=== PATIENT | female | born 1935 | race Caucasian/White ===

== ENCOUNTER 2017-07-22 20:51 | Emergency (ER) | payer OTHER, MEDICARE ==
[~2017-07-22] VITALS: Ht 167.6 cm; Wt 59.9 kg
[2017-07-22 21:13] VITALS: BP_SYST 120
[2017-07-22 23:09] VITALS: BP_SYST 117
== END 2017-07-22 23:09 | disposition home or self-care (01) ==
LOC: SED 20:51
DX: S61.411A Laceration without foreign body of right hand, initial encounter (principal); S00.83XA Contusion of other part of head, initial encounter; I10 Essential (primary) hypertension; Z85.3 Personal history of malignant neoplasm of breast; W19.XXXA Unspecified fall, initial encounter; Y93.89 Activity, other specified; Y92.89 Other specified places as the place of occurrence of the external cause; Y99.8 Other external cause status
CPT/HCPCS: 70486-TC; 99284

== ENCOUNTER 2018-04-02 05:50 | Emergency (ER) | payer OTHER, MEDICARE ==
[~2018-04-02] VITALS: Ht 170.2 cm; Wt 66.7 kg
[2018-04-02 06:00] VITALS: BP_SYST 151
--- NOTE | 2018-04-02 06:00 | NUR ---
Patient to ER bed 2 to gown for evaluation. Side rails up. Report given from NGUYEN Taylor.
--- NOTE | 2018-04-02 06:05 | NUR ---
ER at bedside examining patient.
--- NOTE | 2018-04-02 06:10 | NUR ---
Pt came in post fall 2 weeks ago. Pt states that she fell on her face and her knee about 2 weeks ago. Pt says that she has lower back pain that shes had history of that comes and goes. Pt says that it can happen due to stress. Denies n/v/d or fever. No other complaints/injuries noted. Will cont. to monitor.
[2018-04-02] MEDS ORDERED: KETOROLAC TROMETHAMINE 60 MG/2 ML VIAL IM ONE (06:30)
--- NOTE | 2018-04-02 06:40 | NUR ---
Pt medicated with Toradol IM per MD order. Tolerated well. Will cont. to monitor.
--- NOTE | 2018-04-02 08:52 | NUR ---
PT UP TO BATHROOM WITH MINIMAL ASSITANCE.
--- NOTE | 2018-04-02 09:18 | NUR ---
DC WITH [facility], RX GIVEN TEACHING DONE ON MEDS. PT LEFT WITH STABLE VS, AMB WITH SON ON PRVATE VECHICHLE.
[2018-04-02 12:49] VITALS: BP_SYST 136
== END 2018-04-02 09:18 | disposition home or self-care (01) ==
LOC: SED 05:50
DX: S33.5XXA Sprain of ligaments of lumbar spine, initial encounter (principal); I10 Essential (primary) hypertension; Z85.3 Personal history of malignant neoplasm of breast; W19.XXXA Unspecified fall, initial encounter; Y93.89 Activity, other specified; Y92.89 Other specified places as the place of occurrence of the external cause; Y99.8 Other external cause status
CPT/HCPCS: 71250; 74176; 96372; 99284; J1885

== ENCOUNTER 2021-12-20 12:03 | Emergency (ER) | payer OTHER, MEDICARE ==
[~2021-12-20] VITALS: Ht 170.2 cm; Wt 70.8 kg
[2021-12-20 12:09] VITALS: BP_SYST 166
--- NOTE | 2021-12-20 14:30 | NUR ---
SEEN AND EVALUATED BY DR MOTA IN TRIAGE ROOM.
[2021-12-20 15:18] LABS: ANION GAP 8 (5-15); CALCIUM 9.3 mg/dL (8.4-11.0); CHLORIDE 106 mmol/L (98-107); CREATININE 0.62 mg/dL (0.55-1.30); GLUCOSE 101 mg/dL (70-99); SODIUM SERUM 142 mmol/L (136-145); UREA NITROGEN, BLOOD 13 mg/dL (8-21)
[2021-12-20 15:23] LABS: ALANINE AMINOTRANSFERASE 18 U/L (12-78); ALBUMIN 3.8 g/dL (3.4-4.8); ASPARTATE AMINOTRANSFERASE 17 U/L (10-37); TOTAL BILIRUBIN 0.4 mg/dL (0.0-1.0)
[2021-12-20 15:27] LABS: BASOPHILS # (AUTO) 0.1 K/uL (0.0-0.2); EOSINOPHILS # (AUTO) 0.2 K/uL (0.0-0.4); EOSINOPHILS % (AUTO) 2.6 % (0.0-4.0); LYMPHOCYTES # (AUTO) 3.1 K/uL (1.0-5.5); LYMPHOCYTES % (AUTO) 35.7 % (20.5-51.5); MEAN CORPUSCULAR HEMOGLOBIN 32 pg (27-31); MEAN CORPUSCULAR HGB CONC 33 % (32-36); MEAN CORPUSCULAR VOLUME 95 fL (79.0-98.0); MONOCYTES # (AUTO) 0.7 K/uL (0.0-1.0); MONOCYTES % (AUTO) 7.4 % (1.7-9.3); NEUTROPHILS # (AUTO) 4.7 K/uL (1.8-7.7); NEUTROPHILS % (AUTO) 53.3 % (40.0-70.0); PLATELET COUNT (AUTO) 312 K/uL (130-430); RED BLOOD CELL COUNT(AUTO) 4.71 MIL/uL (4.2-6.2); RED CELL DISTRIBUTION WIDTH 13.2 % (9.0-15.0); WHITE BLOOD COUNT (AUTO) 8.8 K/uL (4.8-10.8)
[2021-12-20 15:44] LABS: BILIRUBIN,URINE NEGATIVE (NEGATIVE); COLOR,URINE YELLOW (YELLOW); GLUCOSE,URINE NEGATIVE (NEGATIVE); KETONES,URINE NEGATIVE (NEGATIVE); LEUKOCYTE ESTERASE ,URINE NEGATIVE (NEGATIVE); NITRITE, URINE NEGATIVE (NEGATIVE); PROTEIN URINE NEGATIVE (NEGATIVE); UROBILINOGEN,URINE 0.2 (0.2-1.0)
[2021-12-20] MEDS ORDERED: KETOROLAC TROMETHAMINE 30 MG VIAL IM ONE (16:00)
--- NOTE | 2021-12-20 16:01 | NUR ---
TAKEN TO RADIOLOGY VIA WHEELCHAIR FOR TESTING
[2021-12-20 16:03] LABS: BLOOD, URINE TRACE (NEGATIVE); CLARITY/URINE SLIGHTLY HAZY (CLEAR)
[2021-12-20 16:27] LABS: BACTERIA,URINE FEW /HPF (None Seen); MUCUS,URINE None Seen /LPF (None Seen); RBC,URINE 0-3 /HPF (0-3)
[2021-12-20 16:42] VITALS: BP_SYST 151
--- NOTE | 2021-12-20 16:44 | NUR ---
Patient given written and verbal discharge instructions and verbalizes understanding. ER MD discussed with patient the results and treatment provided. Patient in stable condition. ID arm band removed. Rx of NONE given. Patient educated on pain management and to follow up with PMD. Pain Scale 2/10. Opportunity for questions provided and answered. Medication side effect fact sheet provided.
== END 2021-12-20 16:42 | disposition home or self-care (01) ==
LOC: SED 12:03
DX: N39.0 Urinary tract infection, site not specified (principal); M54.6 Pain in thoracic spine; R10.9 Unspecified abdominal pain; I10 Essential (primary) hypertension; Z79.899 Other long term (current) drug therapy
CPT/HCPCS: 99284; 76770; 80053; 81000; 85025; 36415; 96372; J1885